=== PATIENT | male | born 1965 | race Caucasian/White ===

== ENCOUNTER 2017-09-03 22:28 | Emergency (ER) | payer OTHER ==
[2017-09-03 22:32] VITALS: BP 131/75; PULSE 68; TEMP 97.5; BMI 38.7
--- NOTE | 2017-09-03 23:40 | PDOC ---
History of Present Illness - General Chief Complaint: Cold Symptoms Stated Complaint: RESPIRATORY Time Seen by Provider: 09/03/17 22:34 - History of Present Illness Initial Comments: 09/03/17 23:32 CHIEF COMPLAINT: panic attacks due to sinus problems HISTORY OF PRESENT ILLNESS: 52 yo M with hx of sinus problems (s/p corticosteroid injection 4 days ago) presents to ED with "panic attacks because I feel like I can't breathe through my nose." He reports he has not slept in 4 days due to the intermittent of his sinus swelling that wakes him up and " blocks my ability to breathe and I have to breathe through my mouth." Patient states he can not take steroids due to "roid rage." PAST MEDICAL HISTORY: Denies past medical history FAMILY HISTORY: Denies SOCIAL HISTORY: Denies tobacco, alcohol, illicit drug use. SURGICAL HISTORY: Denies ALLERGIES: No known drug allergies REVIEW OF SYSTEMS General/Constitutional: Denies fever or chills. Denies weakness. HEENT: "My sinuses keep opening and closing and I can't sleep." Denies change in vision. Denies ear pain or discharge. Denies sore throat. Cardiovascular: Denies chest pain or shortness of breath. Respiratory: Denies cough, wheezing, or hemoptysis. Gastrointestinal: Denies nausea, vomiting, diarrhea or constipation. Denies rectal bleeding. Neurologic: Denies headache, vertigo, loss of consciousness, or loss of sensation. Psychiatric: Panic attacks. PHYSICAL EXAM General Appearance: Well-appearing, appropriately dressed. No apparent distress , no intoxication. HEENT: EOMI, PERRLA, normal ENT inspection, normal voice, TMs normal, pharynx normal. No conjunctival pallor. No photophobia, scleral icterus. Respiratory/Chest: Lungs CTAB. No shortness of breath, chest tenderness, respiratory distress, accessory muscle use. No crackles, rales, rhonchi, stridor , wheezing, dullness Cardiovascular: RRR. S1, S2. Gastrointestinal/Abdominal: Normal bowel sounds. Abdomen soft, non-distended. No tenderness or rebound tenderness. No organomegaly, pulsatile mass, guarding , hernia, hepatomegaly, splenomegaly. Musculoskeletal/Extremities: Normal inspection. FROM of all extremities, normal capillary refill. Pelvis Stable. No CVA tenderness. No tenderness to extremities, pedal edema, swelling, erythema or deformity. Integumentary: Appropriate color, dry, warm. 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 Fully oriented, alert. Appropriate mood/affect. Motor strength 5/5. No appreciable EOM palsy, facial droop or sensory deficit. Psychiatric: Patient anxious appearing, pacing around exam room. Past History - Past Medical History Allergies/Adverse Reactions: Allergies Allergy/AdvReac Type Severity Reaction Status Date / Time barley Allergy Verified 09/03/17 22:32 Penicillins Allergy Itching Verified 09/03/17 22:32 BAKERS YEAST Allergy Uncoded 09/03/17 22:32 Home Medications: Ambulatory Orders Omeprazole Magnesium [Prilosec (OTC)] 40 mg PO DAILY 08/31/14 Simvastatin [Zocor -] 40 mg PO HS 08/31/14 Allopurinol 300 mg PO DAILY 09/03/17 Buspirone HCl [Buspar -] 5 mg PO QID 09/03/17 Diazepam [Valium] 1 - 2 tab PO HS PRN #20 tablet MDD 2 09/03/17 Diclofenac Sodium 75 mg PO BID #20 tablet. 09/03/17 Triamterene-Hctz 37.5-25 mg Tb 1 tab PO DAILY 09/03/17 COPD: No Hypercholesterolemia: Yes - Suicide/Smoking/Psychosocial Hx Smoking History: Never smoked Hx Alcohol Use: Yes (SOCIAL) *Physical Exam - Vital Signs Last Vital Signs Temp Pulse Resp BP Pulse Ox 97.5 F L 68 18 131/75 99 09/03/17 22:29 09/03/17 22:29 09/03/17 22:29 09/03/17 22:29 09/03/17 22:29 Medical Decision Making - Medical Decision Making 09/03/17 23:40 52 yo M with hx of sinus problems (s/p corticosteroid injection 4 days ago) presents to ED with "panic attacks because I feel like I can't breathe through my nose." Patient anxious, otherwise physical exam grossly unremarkable Patient refuses steroids. Will rx NSAIDS and Valium Advised patient to take medication as prescribed and follow up with ENT within the next week. Advised patient of signs and symptoms for return to ED. Patient verbalized understanding and agrees to plan. *DC/Admit/Observation/Transfer Diagnosis at time of Disposition: Sinus problem, Panic attack - Discharge Dispostion Disposition: HOME Condition at time of disposition: Stable Decision to Admit order: No - Prescriptions Prescriptions: Diazepam [Valium] 1 - 2 tab PO HS PRN #20 tablet MDD 2 PRN Reason: Anxiety Diclofenac Sodium 75 mg PO BID #20 tablet.dr - Referrals Referrals: Momo Nicole [Primary Care Provider] - - Patient Instructions Printed Discharge Instructions: Sinusitis (Alternative Therapy), DI for Sinusitis, DI for Panic Disorder Additional Instructions: Please take medications as prescribed and follow up with your ENT within the next 3-5 days. If you develop any swelling to your throat, tongue, lips, mouth , neck, or have any new or worsening symptoms, please return to the ER immediately. - Post Discharge Activity
--- NOTE | 2017-09-03 23:56 | PDOC ---
*Physical Exam - Vital Signs Last Vital Signs Temp Pulse Resp BP Pulse Ox 97.5 F L 68 18 131/75 99 09/03/17 22:29 09/03/17 22:29 09/03/17 22:29 09/03/17 22:29 09/03/17 22:29 Medical Decision Making - Medical Decision Making 09/03/17 23:55 agree with care from IGNACIO Harper *DC/Admit/Observation/Transfer Diagnosis at time of Disposition: Sinus problem, Panic attack - Discharge Dispostion Disposition: HOME Condition at time of disposition: Stable - Prescriptions Prescriptions: Diazepam [Valium] 1 - 2 tab PO HS PRN #20 tablet MDD 2 PRN Reason: Anxiety Diclofenac Sodium 75 mg PO BID #20 tablet.dr - Referrals Referrals: Momo Nicole [Primary Care Provider] - - Patient Instructions Printed Discharge Instructions: Sinusitis (Alternative Therapy), DI for Sinusitis, DI for Panic Disorder Additional Instructions: Please take medications as prescribed and follow up with your ENT within the next 3-5 days. If you develop any swelling to your throat, tongue, lips, mouth , neck, or have any new or worsening symptoms, please return to the ER immediately. - Post Discharge Activity
== END 2017-09-03 23:51 | disposition home or self-care (01) ==
LOC: JER 22:28
DX: J34.89 Other specified disorders of nose and nasal sinuses (principal); F41.0 Panic disorder [episodic paroxysmal anxiety]
CPT/HCPCS: 99282-25